=== PATIENT | female | born 1950 | race Two or more races ===

== ENCOUNTER 2024-10-27 10:16 | Inpatient (IN) | payer OTHER ==
[~2024-10-27] VITALS: Ht 147.3 cm; Wt 88.9 kg
--- NOTE | 2024-10-27 10:37 | ED.PDOC ---
History of present illness HPI Comments 74 y/o F, with PMHx of CKF, DM, and CVA presents to the ED for CC of hypoglycemia. EMS reports, patient is coming from home where family called due to patient being disoriented and confused. Upon arrival to scene, EMS relays patient's blood sugar to have read at 34 on glucometer. In route to the ED, patient was given a bag of D10; blood sugar read at 126 after administration. Patient receives dialysis 3x a week, last dialysis was said to be as of yesterday (10/26/24); patient was only able to complete half of her treatment. No other symptoms or modifying factors present at this time due to patient's condition. Chief Complaint: Hypoglycemia Time Seen by MD: 10:10 History of present illness: Nurses Notes, Press Tool Maker Notes, Medications, Allergies Allergies: Coded Allergies: NO KNOWN ALLERGIES (Unverified , 10/27/24) Information Source: Patient, Emergency Med Personnel Mode of Arrival: EMS Timing: Hours Duration: Since onset Prehospital treatment: None [place]: Confusion History of: Diabetes, Insulin use Modifying factors: Nothing Associated signs and symptoms: None Past Medical History PAST MEDICAL HISTORY: CKF, CVA, DM Surgical History: Cholecystectomy OFFICE SUPPORT SPECIALIST History: Denies all OFFICE SUPPORT SPECIALIST Hx Family History Family History: Unknown Social History Smoker: Non-Smoker Alcohol: Denies ETOH Use Drugs: Denies Drug Use Lives In: Home Constitutional: denies: chills, diaphoresis, fatigue, fever, malaise, sweats, weakness, others EENTM: denies: blurred vision, double vision, ear bleeding, ear discharge, ear drainage, ear pain, ear ringing, eye pain, eye redness, hearing loss, mouth pain, mouth swelling, nasal discharge, nose bleeding, nose congestion, nose pain, photophobia, tearing, throat pain, throat swelling, voice changes, others Respiratory: denies: cough, hemoptysis, orthopnea, SOB at rest, shortness of breath, SOB with excertion, stridor, wheezing, others Cardiovascular: denies: chest pain, dizzy spells, diaphoresis, Dyspnea on exertion, edema, irregular heart beat, left arm pain, lightheadedness, palpi tations, PND, syncope, others Gastrointestinal: denies: abdomen distended, abdominal pain, blood streaked bowels, constipated, diarrhea, dysphagia, difficulty swallowing, hematemesis, melena, nausea, poor appetite, poor fluid intake, rectal bleeding, rectal pain, vomiting, others Genitourinary: denies: abnormal vagina bleeding, burning, dyspareunia, dysuria, flank pain, frequency, hematuria, incontinence, pain, , vagina discharge, urgency, others Neurological: denies: dizziness, fainting, headache, left sided numbness, left sided weakness, numbness, paresthesia, pre-existing deficit, right sided numbness, right sided weakness, seizure, speech problems, tingling, tremors, weakness, others Musculoskeletal: denies: back pain, gout, joint pain, joint swelling, muscle pain, muscle stiffness, neck pain, others Integumetry: denies: bruises, change in color, change in hair/nails, dryness, laceration, lesions, lumps, rash, wounds, others Allergic/Immunocompromised: denies: Difficulty Healing, Frequent Infections, Hives, Itching, others Hematologic/Lymphatic: denies: anemia, blood clots, easy bleeding, easy bru ising, swollen glands, others Endocrine: denies: excessive hunger, excessive sweating, excessive thirst, e xcessive urination, flushing, intolerance to cold, intolerance to heat, unexplained weight gain, unexplained weight loss, others Psychiatric: denies: anxiety, bipolar disorder, depression, hopeless, panic disorder, schizophrenia, sleepless, suicidal, others Unable to Obtain due to: Altered Mental Status Physical Exam General Appearance: Moderate Distress, Obese HEENT: Normal ENT Inspection, Pharynx Normal, TMs Normal Neck: Full Range of Motion, Non-Tender, Normal, Normal Inspection Respiratory: Chest Non-Tender, Lungs Clear, No Accessory Muscle Use, No Respiratory Distress, Normal Breath Sounds Cardiovascular: No Edema, No JVD, No Murmur, No Gallop, Normal Peripheral Pulses, Regular Rate/Rhythm Breast Exam: Deferred Gastrointestinal: No Organomegaly, Non Tender, No Pulsatile Mass, Normal Bowel Sounds, Soft Genitalia: Deferred Pelvic: Deferred Rectal: Deferred Extremities: No calf tenderness, Normal capillary refill, Normal inspection, Normal range of motion, Non-tender, No pedal edema Musculoskeletal : Apperance: Normal Neurologic: Alert, houseman II-XII nml as Tested, No Motor Deficits, Normal Affect, Normal Mood, No Sensory Deficits Cerebellar Function: Normal Reflexes: Normal Skin: Dry, Normal Color, Warm Lymphatic: No Adenopathy Was a procedure done? Was a procedure done?: No EKG EKG : Pulse Rate (adult): 57 [place]: Normal Cardiac Rhythm: NSR, PVC's Block: None Hypertrophy: None ST: Normal Differential Diagnosis (DM) Differential Diagnosis: Dehydration, Electrolyte Abnormality, Hypoglycemia X-Ray, Labs, Meds, VS Vital Signs Date Time Temp Pulse Resp B/P (MAP) Pulse Ox O2 Delivery O2 Flow Rate FiO2 10/27/24 12:00 62 10/27/24 11:00 59 16 98 Room Air* 0 21 10/27/24 10:53 97.8 59 16 125/60 (81) 98 97.8 10/27/24 10:37 57 10/27/24 10:25 97.8 60 18 120/48 (72) 95 97.8 Lab Test 10/27/24 11:45 10/27/24 10:50 Range/Units Urine Color Colorless Yellow Urine Clarity Turbid H Clear Urine pH 8.0 5.0-9.0 Urine Specific [place] 1.006 1.001-1.035 Urine Protein 2+ H Negative Urine Ketones Negative Negative Urine Blood 1+ H Negative /uL Urine Nitrite Negative Negative Urine Bilirubin Negative Negative Urine Urobilinogen Normal Negative mg/dL Urine Leukocyte Esterase 3+ Negative /uL Urine RBC 23 0 - 4 /hpf Urine Microscopic WBC 904 H 0-5 /HPF Urine Squamous Epithelial Cells None seen <5 /hpf Urine Bacteria None seen None Seen /hpf Urine Glucose Normal Normal mg/dL White Blood Count 5.4 4.4-10.8 10^3/uL Red Blood Count 4.10 4.0-5.20 10^6/uL Hemoglobin 12.8 12.2-16.2 g/dL Hematocrit 39.3 36.0-46.0 % Mean Corpuscular Volume 95.7 80.0-100.0 fL Mean Corpuscular Hemoglobin 31.3 28.0-32.0 pg Mean Corpuscular Hemoglobin Concent 32.7 32.0-36.0 g/dL Red Cell Distribution Width 17.4 H 11.8-14.3 % Platelet Count 164 140-450 10^3/uL Mean Platelet Volume 8.6 6.9-10.8 fL Neutrophils (%) (Auto) 74.9 37.0-80.0 % Lymphocytes (%) (Auto) 19.0 10.0-50.0 % Monocytes (%) (Auto) 5.3 0.0-12.0 % Eosinophils (%) (Auto) 0.3 0.0-7.0 % Basophils (%) (Auto) 0.5 0.0-2.0 % Neutrophils # (Auto) 4.1 1.6-8.6 10 ^3/uL Lymphocytes # (Auto) 1.0 0.4-5.4 10 ^3/uL Monocytes # (Auto) 0.3 0-1.3 10 ^3/uL Eosinophils # (Auto) 0 0-0.8 10 ^3/uL Basophils # (Auto) 0 0-0.2 10 ^3/uL Nucleated Red Blood Cells 0.0 % Sodium Level 135 L 136-145 mmol/L Potassium Level 3.8 3.5-5.1 mmol/L Chloride Level 96 L 98-107 mmol/L Carbon Dioxide Level 30 20-31 mmol/L Anion Gap 9 5-15 Blood Urea Nitrogen 27 H 9-23 mg/dL Creatinine 5.85 H 0.550-1.02 mg/dL Glomerular Filtration Rate Calc 7 >90 mL/min BUN/Creatinine Ratio 4.6 L 10.0-20.0 Serum Glucose 153 H 74-106 mg/dL Lactic Acid Level 0.8 0.4-2.0 mmol/L Calcium Level 8.7 8.7-10.4 mg/dL CXR: IMPRESSION: Cardiomegaly with mild pulmonary vascular congestion. The patient's CBC is within normal limits The patient's BUN is 27 the creatinine is 5.5 consistent with the patient's Rest of the chemistry panel is within normal limits with hypochloremia at 96 The patient also has a UTI and is being started on Rocephin 1 g IV piggyback At this time, we will continue to monitor the patient's blood sugar The patient is being admitted at this time Images Reviewed?: Images reviewed and evaluated by me Time of 1ST Reevaluation: 10:40 Reevaluation 1ST: Unchanged Time of 2ND Reevaluation: 13:32 Reevaluation 2ND: Improved Patient Education/Counseling: Diagnosis, Treatment, Prognosis Family Education/Counseling: No Family Present Departure 1 Departure Time of Disposition: 13:32 Impression: Primary Impression: Metabolic encephalopathy Additional Impressions: Hypoglycemia UTI (urinary tract infection) Qualified Codes: N30.00 - Acute cystitis without hematuria Disposition: ADMITTED INPATIENT Admit to: Tele Condition: Fair Critical Care Note Critical Care Time?: Yes (45 min-critical care time only) Stability Stability form required: Yes Unstable for transfer: Telemetry monitoring (Telemetry monitoring required), ED Physician Assesment (Clinical assesment) Heart Score Heart Score: Heart Score Response (Comments) Value History N/A 0 EKG N/A 0 Age N/A 0 Risk Factors N/A 0 Troponin N/A 0 Total 0 I personally scribed for DESTINEE LAUREN MD ([email or web address]) on 10/27/24 at 10:37. Electronically submitted by Juanis Voss ([email or web address]). I personally scribed for DESTINEE LAUREN MD ([email or web address]) on 10/27/24 at 12:09. Electronically submitted by Juanis Voss ([email or web address]). DESTINEE LAUREN MD October 27, 2024 10:37
[2024-10-27 11:00] VITALS: PULSE 59; RESP 16; O2SAT 98
[2024-10-27 11:07] LABS: Basophils # (auto) 0 10 ^3/uL (0-0.2); Basophils % (auto) 0.5 % (0.0-2.0); Eosinophils # (auto) 0 10 ^3/uL (0-0.8); Eosinophils % (auto) 0.3 % (0.0-7.0); Hematocrit 39.3 % (36.0-46.0); Hemoglobin 12.8 g/dL (12.2-16.2); Mean Corpuscular Hemoglobin 31.3 pg (28.0-32.0); Mean Corpuscular Hgb Conc. 32.7 g/dL (32.0-36.0); Mean Corpuscular Volume 95.7 fL (80.0-100.0); Monocytes # (auto) 0.3 10 ^3/uL (0-1.3); Monocytes % (auto) 5.3 % (0.0-12.0); Neutrophils # (auto) 4.1 10 ^3/uL (1.6-8.6); Neutrophils % (auto) 74.9 % (37.0-80.0); Platelet Count (auto) 164 10^3/uL (140-450); Red Cell Distribution Width 17.4 % (11.8-14.3); White Blood Cell 5.4 10^3/uL (4.4-10.8)
[2024-10-27 11:16] LABS: Carbon Dioxide 30 mmol/L (20-31); Potassium 3.8 mmol/L (3.5-5.1)
[2024-10-27 11:17] LABS: Calcium 8.7 mg/dL (8.7-10.4)
[2024-10-27 11:21] LABS: Anion Gap 9 (5-15); Chloride 96 mmol/L (98-107); Sodium 135 mmol/L (136-145)
[2024-10-27 11:22] LABS: BUN/Creatinine Ratio 4.6 (10.0-20.0); Blood Urea Nitrogen 27 mg/dL (9-23); Glucose 153 mg/dL (74-106)
--- NOTE | 2024-10-27 11:42 | DVH ---
EXAM: XY CHEST PORTABLE Indication: ALOC Technique: Single frontal view of the chest was obtained Comparison: None FINDINGS: Lines and Tubes: None Lungs: No focal consolidation. Mild pulmonary vascular congestion. Pleura: No effusion. No pneumothorax. Cardiomediastinal contours: Cardiomegaly. Atherosclerotic vascular calcifications of the thoracic ao rta are noted. Bones: No acute osseous abnormality. IMPRESSION: Cardiomegaly with mild pulmonary vascular congestion.
[2024-10-27 11:50] LABS: Urine Bacteria None Seen /hpf (None Seen)
[2024-10-27 11:59] LABS: Urine Blood 1+ /uL (Negative); Urine Clarity Turbid (Clear); Urine Color Colorless (Yellow); Urine Protein, UAD 2+ (Negative); Urine Specific Gravity 1.006 (1.001-1.035); Urine Squamous Epithelial Cell None Seen /hpf (<5); Urine Urobilinogen Normal (Negative); Urine WBC 904 /HPF (0-5)
[2024-10-27] MEDS: cefTRIAXone 1GM/50ML D5W 50 ML IV ONE (13:52)
[2024-10-27] MEDS ORDERED: GABA-1250 PO (14:14)
[2024-10-27] MEDS ORDERED: AMLO1TAB21 PO (14:14)
[2024-10-27] MEDS ORDERED: MEMA1TAB5 PO (14:14)
[2024-10-27] MEDS ORDERED: FLUO-470 PO (14:14)
[2024-10-27] MEDS ORDERED: CARV12.544 PO (14:14)
[2024-10-27] MEDS ORDERED: ATOR20TA50 PO (14:14)
[2024-10-27] MEDS ORDERED: DOCUSATE SOD 100 MG CAP PO PRN (14:15)
[2024-10-27] MEDS ORDERED: DEXTROSE (50%) 50ML SYRG IV PRN (14:15)
[2024-10-27] MEDS ORDERED: ACETAMINOPHEN 325 MG TAB PO PRN (14:15)
[2024-10-27] MEDS ORDERED: ONDANSETRON HCL 4 MG/2 ML VIAL IV PRN (14:15)
[2024-10-27] MEDS ORDERED: HYDROcodone-ACET 5/325MG TAB PO PRN (14:15)
--- NOTE | 2024-10-27 14:30 | DVHHP2 ---
History of Present Illness Reason for Visit: AL History of Present Illness Sandra Booth is a 74-year-old female with past medical history of CVA, ESRD on HD, hypertension, hyperlipidemia, and diabetes, who came in due to altered level of consciousness and hypoglycemia. Patient states she does not remember what happened this morning. The last thing she can remember is going to bed last night. According to family, she was confused this morning, so they called EMS. With EMS her blood sugars were low and she was given D10 and blood sugar improved. Family states her last dialysis was yesterday, but they were only to complete partial due to her clotting. Patient states she takes insulin at home, that she did take it yesterday, but she can not remember the dose. Cardiovascular: HTN, hyperipidemia EVENING SITTER: CVA Renal/: Chronic renal failure (on HD) Endocrine: Diabetes Past Surgical History: Cholecystectomy, Tonsillectomy Smoke: No ALCOHOL: none Drugs: None Lives: with Family Domestic Violence: Neg Review of Systems Constitutional: No: Fever, Chills, Sweats, Weakness, Malaise, Other Eyes: No: Pain, Vision change, Conjunctivae inflammation, Eyelid inflammation, Other, Redness ENT: No: Ear pain, Ear discharge, Nose pain, Nose discharge, Nose congestion, Mouth pain, Mouth swelling, Throat pain, Throat swelling, Other Respiratory: No: Cough, Dry, Shortness of breath, SOB with excertion, Wheezing, Hemoptysis, Pleuritic Pain, Sputum, Wheezing, Other Cardiovascular: No: Chest Pain, Palpitations, Orthopnea, Paroxysmal Noc. Dyspnea, Edema, Lt Headedness, Other Gastrointestinal: No: Nausea, Vomiting, Abdominal Pain, Diarrhea, Constipation, Melena, Hematochezia, Other Genitourinary: No Dysuria, No Frequency, No Incontinence, No Hematuria, No Retention, No Other Musculoskeletal: No: other, neck pain, shoulder pain, arm pain, back pain, hand pain, leg pain, foot pain Skin: No: Rash, Lesions, Jaundice, Bruising, Other Neurological: Weakness, Confusion, Other (hypoglycemia); No: Numbness, Incoo rdination, Change in speech, Seizures Allergies: Coded Allergies: NO KNOWN ALLERGIES (Unverified , 10/27/24) Medications Current Medications Medications Dose Ordered Sig/Ruby Route Start Time Stop Time Status Last Admin Dose Admin Sodium Chloride 10 ml Q8HR IV 10/27/24 22:00 UNV Acetaminophen/ Hydrocodone Bitart 1 tab Q4HP PRN PO 10/27/24 14:15 UNV Ondansetron HCl 4 mg Q4HP PRN IV 10/27/24 14:15 UNV Docusate Sodium 100 mg BIDPRN PRN PO 10/27/24 14:15 UNV Acetaminophen 650 mg Q6HP PRN PO 10/27/24 14:15 UNV Diagnostic Test (Pha) 1 strip Q2H 10/27/24 14:15 UNV Dextrose 50 ml UD PRN IV 10/27/24 14:15 UNV Exam Vital Signs Vital Signs Date Time Temp Pulse Resp B/P (MAP) Pulse Ox O2 Delivery O2 Flow Rate FiO2 10/27/24 14:12 62 16 133/26 (61) 95 10/27/24 11:00 Room Air* 0 21 10/27/24 10:53 97.8 97.8 General Appearance: Alert, Oriented X3, Cooperative HEENT: Atraumatic, PERRLA Respiratory: Clear to auscultation, Normal air movement Cardiovascular: Regular rate, Normal S1, Normal S2, No murmurs Abdominal: Normal bowel sounds, Soft, No tenderness Extremities: No clubbing, No cyanosis, No edema, Normal pulses Skin: No rashes, No breakdown, No significant lesion Neuro: Normal gait, Normal speech, Strength at 5/5 X4 ext, Normal tone Psych/Mental Status: Mental status NL, Mood NL Labs/Xrays Labs Test 10/27/24 11:45 10/27/24 10:50 Range/Units Urine Color Colorless Yellow Urine Clarity Turbid H Clear Urine pH 8.0 5.0-9.0 Urine Specific [place] 1.006 1.001-1.035 Urine Protein 2+ H Negative Urine Ketones Negative Negative Urine Blood 1+ H Negative /uL Urine Nitrite Negative Negative Urine Bilirubin Negative Negative Urine Urobilinogen Normal Negative mg/dL Urine Leukocyte Esterase 3+ Negative /uL Urine RBC 23 0 - 4 /hpf Urine Microscopic WBC 904 H 0-5 /HPF Urine Squamous Epithelial Cells None seen <5 /hpf Urine Bacteria None seen None Seen /hpf Urine Glucose Normal Normal mg/dL White Blood Count 5.4 4.4-10.8 10^3/uL Red Blood Count 4.10 4.0-5.20 10^6/uL Hemoglobin 12.8 12.2-16.2 g/dL Hematocrit 39.3 36.0-46.0 % Mean Corpuscular Volume 95.7 80.0-100.0 fL Mean Corpuscular Hemoglobin 31.3 28.0-32.0 pg Mean Corpuscular Hemoglobin Concent 32.7 32.0-36.0 g/dL Red Cell Distribution Width 17.4 H 11.8-14.3 % Platelet Count 164 140-450 10^3/uL Mean Platelet Volume 8.6 6.9-10.8 fL Neutrophils (%) (Auto) 74.9 37.0-80.0 % Lymphocytes (%) (Auto) 19.0 10.0-50.0 % Monocytes (%) (Auto) 5.3 0.0-12.0 % Eosinophils (%) (Auto) 0.3 0.0-7.0 % Basophils (%) (Auto) 0.5 0.0-2.0 % Neutrophils # (Auto) 4.1 1.6-8.6 10 ^3/uL Lymphocytes # (Auto) 1.0 0.4-5.4 10 ^3/uL Monocytes # (Auto) 0.3 0-1.3 10 ^3/uL Eosinophils # (Auto) 0 0-0.8 10 ^3/uL Basophils # (Auto) 0 0-0.2 10 ^3/uL Nucleated Red Blood Cells 0.0 % Sodium Level 135 L 136-145 mmol/L Potassium Level 3.8 3.5-5.1 mmol/L Chloride Level 96 L 98-107 mmol/L Carbon Dioxide Level 30 20-31 mmol/L Anion Gap 9 5-15 Blood Urea Nitrogen 27 H 9-23 mg/dL Creatinine 5.85 H 0.550-1.02 mg/dL Glomerular Filtration Rate Calc 7 >90 mL/min BUN/Creatinine Ratio 4.6 L 10.0-20.0 Serum Glucose 153 H 74-106 mg/dL Lactic Acid Level 0.8 0.4-2.0 mmol/L Calcium Level 8.7 8.7-10.4 mg/dL EXAM: XY CHEST PORTABLE FINDINGS: Lines and Tubes: None Lungs: No focal consolidation. Mild pulmonary vascular congestion. Pleura: No effusion. No pneumothorax. Cardiomediastinal contours: Cardiomegaly. Atherosclerotic vascular calcifications of the thoracic aorta are noted. Bones: No acute osseous abnormality. IMPRESSION: Cardiomegaly with mild pulmonary vascular congestion. Assessment/Plan Assessment/Plan Assessment: Hypoglycemia, ESRD on HD, Hypertension, Diabetes, Plan: Admit to Med-Surg, Nephrology consult, Accu checks Q 2 hour with PRN dextrose, Home insulin held due to hypoglycemia and patient is unclear of her dose, Home medications reconciled, Plan discussed with: Patient My Orders Orders - REGINO HEARD Procedure Category Date Status Time *Dr. Lissa Cline -Da CONS 10/27/24 Transmitted Sonia 14:09 Admit ADMIT 10/27/24 Transmitted 14:09 Code Status CODE 10/27/24 Transmitted 14:09 Renal DIET 10/27/24 Transmitted Standard(2gna,3gk,Lopho) Dinner Sodium Chloride Lock PHA 10/27/24 Logged (Saline Lock Ns) 22:00 Hydrocodone-Acet PHA 10/27/24 Transmitted 5/325mg Tab (Alexander 14:15 Ondansetron Hcl PHA 10/27/24 Transmitted (Zofran) 14:15 Docusate Sodium PHA 10/27/24 Transmitted Capsule (Colace 14:15 Complete Blood Count LAB 10/28/24 Verified 04:00 Comprehensive LAB 10/28/24 Verified Metabolic Panel 04:00 Condition: Serious GONZÁLEZ 10/27/24 In Process 14:09 Acetaminophen Tablet PHA 10/27/24 Transmitted (Tylenol Tablet) 14:15 Glucose Blood PHA 10/27/24 Transmitted (Accu-Chek Comfort 14:15 Dextrose 50% Syringe PHA 10/27/24 Logged 14:15 Atorvastatin (Lipitor) PHA 10/28/24 Verified 10:00 Carvedilol Tablet PHA 10/27/24 Verified (Coreg Tablet) 22:00 Fluoxetine Capsule PHA 10/28/24 Verified (Prozac Capsule) 10:00 (Nf) Amlodipine PHA 10/28/24 Verified Besylate 10:00 (Nf) Memantine PHA 10/28/24 Verified Hydrochloride 10:00 Gabapentin Capsule PHA 10/27/24 Verified (Neurontin Capsule) 22:00 Date of Service: October 27, 2024 Billing Provider: REGINO HEARD Common Visit Codes: [id number] INP/OBS CARE (MOD) REGINO HEARD October 27, 2024 14:30
[2024-10-27] MEDS: ACCU-CHEK COMFORT CURVE STRIP VI SCH (14:58)
[2024-10-27 20:00] VITALS: PULSE 69; RESP 16
[2024-10-27 21:00] VITALS: BP 134/95; PULSE 69; RESP 18; TEMP 98.3; O2SAT 92
[2024-10-27] MEDS: SODIUM CHLOR 0.9% PF (SALINE LOCK) 10ML VIAL/SYR IV SCH (22:36)
[2024-10-27] MEDS: ATORVASTATIN 20 MG TAB PO SCH (22:36)
[2024-10-27] MEDS: CARVEDILOL 12.5 MG TAB PO SCH (22:36)
[2024-10-27] MEDS: GABAPENTIN 300 MG CAP PO SCH (22:37)
[2024-10-28] MEDS: ACCU-CHEK COMFORT CURVE STRIP VI SCH (00:14)
[2024-10-28] MEDS: InsuLIN REG 1unit/0.01ml Soln (100units/ml) SC SCH (00:17)
[2024-10-28 01:00] VITALS: BP 115/40; PULSE 64; RESP 18; TEMP 98.9; O2SAT 99
[2024-10-28 05:00] VITALS: BP 103/41; PULSE 58; RESP 18; TEMP 98.2; O2SAT 94
[2024-10-28] MEDS: DEXTROSE (50%) 50ML SYRG IV PRN (06:09)
[2024-10-28 06:33] LABS: Basophils # (auto) 0 10 ^3/uL (0-0.2); Basophils % (auto) 0.7 % (0.0-2.0); Eosinophils # (auto) 0.2 10 ^3/uL (0-0.8); Hematocrit 34.5 % (36.0-46.0); Hemoglobin 11.3 g/dL (12.2-16.2); Lymphocytes # (auto) 1.2 10 ^3/uL (0.4-5.4); Lymphocytes % (auto) 22.2 % (10.0-50.0); Mean Corpuscular Hemoglobin 31.4 pg (28.0-32.0); Mean Corpuscular Hgb Conc. 32.8 g/dL (32.0-36.0); Mean Corpuscular Volume 95.8 fL (80.0-100.0); Monocytes # (auto) 0.5 10 ^3/uL (0-1.3); Monocytes % (auto) 9.7 % (0.0-12.0); Neutrophils # (auto) 3.6 10 ^3/uL (1.6-8.6); Neutrophils % (auto) 63.4 % (37.0-80.0); Nucleated Red Blood Cells % 0.1 %; Platelet Count (auto) 176 10^3/uL (140-450); Red Cell Distribution Width 17.8 % (11.8-14.3); White Blood Cell 5.6 10^3/uL (4.4-10.8)
[2024-10-28 06:59] LABS: Alanine Aminotransferase 13 U/L (7-40); Albumin 3.3 g/dL (3.2-4.8); Alkaline Phosphatase 56 U/L (46-116); Anion Gap 12 (5-15); Aspartate Aminotransferase 15 U/L (13-40); BUN/Creatinine Ratio 4.9 (10.0-20.0); Carbon Dioxide 29 mmol/L (20-31); Potassium 3.8 mmol/L (3.5-5.1); Sodium 138 mmol/L (136-145)
[2024-10-28 07:26] LABS: Chloride 97 mmol/L (98-107)
[2024-10-28 07:29] LABS: Bilirubin, Total 0.2 mg/dL (0.2-1.0); Blood Urea Nitrogen 34 mg/dL (9-23); Calcium 8.2 mg/dL (8.7-10.4); Glucose 28 mg/dL (74-106)
[2024-10-28 09:00] VITALS: BP 111/38; PULSE 63; RESP 18; TEMP 98.7; O2SAT 99
[2024-10-28] MEDS: MEMANTINE HCL 5 MG TAB PO SCH (09:41)
[2024-10-28] MEDS: FLUoxetine HCL 20 MG CAP PO SCH (09:41)
[2024-10-28] MEDS: amLODIPine BESYLATE 5 MG TAB PO SCH (09:45)
[2024-10-28 13:00] VITALS: BP 120/48; PULSE 64; RESP 17; TEMP 98; O2SAT 100
[2024-10-28 17:00] VITALS: BP 144/60; PULSE 63; RESP 16; TEMP 98; O2SAT 94
--- NOTE | 2024-10-28 17:46 | DVHPN2 ---
Subjective had episode of hypoglycemia to 30s this morning Changes from previous H/P or p: No Changes Eyes: No Pain, No Vision change, No Conjunctivae inflammation, No Eyelid inflammation, No Other, No Redness ENT: No Ear pain, No Ear discharge, No Nose pain, No Nose discharge, No Nose congestion, No Mouth pain, No Mouth swelling, No Throat pain, No Throat swelling, No Other Cardiovascular: No Chest Pain, No Palpitations, No Orthopnea, No Paroxysmal Noc. Dyspnea, No Edema, No Lt Headedness, No Other Respiratory: No Cough, No Dry, No Shortness of breath, No SOB with excertion, No Wheezing, No Hemoptysis, No Pleuritic Pain, No Sputum, No Other Gastrointestinal: No Nausea, No Vomiting, No Abdominal Pain, No Diarrhea, No Constipation, No Melena, No Hematochezia, No Other Genitourinary: No Dysuria, No Frequency, No Incontinence, No Hematuria, No Retention, No Other Musculoskeletal: No other, No neck pain, No shoulder pain, No arm pain, No back pain, No hand pain, No leg pain, No foot pain Skin: No Rash, No Lesions, No Jaundice, No Bruising, No Other Objective Vitals Vital Signs Date Time Temp Pulse Resp B/P (MAP) Pulse Ox O2 Delivery O2 Flow Rate FiO2 10/28/24 13:00 98.0 64 17 120/48 (72) 100 98.0 10/28/24 08:00 Room Air* 0 21 Intake/Output Intake and Output 10/28/24 07:00 Intake Total 518 ml Output Total 700 ml Balance -182 ml Intake Oral 468 ml IV Total 50 ml Output Urine Total 700 ml General Appearance: Alert, Oriented X3 HEENT: Atraumatic, PERRLA Cardiovascular: Regular rate, Normal S1, Normal S2 Medications Current Medications Medications Dose Ordered Sig/Ruby Route Start Time Stop Time Status Last Admin Dose Admin Sodium Chloride 10 ml Q8HR IV 10/27/24 22:00 10/28/24 14:52 10 ML Acetaminophen/ Hydrocodone Bitart 1 tab Q4HP PRN PO 10/27/24 14:15 Ondansetron HCl 4 mg Q4HP PRN IV 10/27/24 14:15 Docusate Sodium 100 mg BIDPRN PRN PO 10/27/24 14:15 Acetaminophen 650 mg Q6HP PRN PO 10/27/24 14:15 Dextrose 50 ml UD PRN IV 10/27/24 14:15 Cancel Atorvastatin Calcium 20 mg HS PO 10/27/24 22:00 10/27/24 22:36 20 MG Carvedilol 12.5 mg BID PO 10/27/24 22:00 10/28/24 09:45 12.5 MG Fluoxetine HCl 20 mg DAILY PO 10/28/24 10:00 10/28/24 09:41 20 MG Amlodipine Besylate 2.5 mg DAILY PO 10/28/24 10:00 10/28/24 09:45 2.5 MG Memantine 10 mg DAILY PO 10/28/24 10:00 10/28/24 09:41 10 MG Gabapentin 300 mg TID PO 10/27/24 22:00 10/28/24 14:51 300 MG Diagnostic Test (Pha) 1 strip Q6HR 10/28/24 00:00 10/28/24 12:00 1 STRIP Insulin Human Regular Q6HR SC 10/28/24 00:00 10/28/24 12:59 4 UNITS Dextrose 50 ml UD PRN IV 10/27/24 23:30 10/28/24 06:09 50 ML Laboratory Results Laboratory Tests 10/28/24 05:37 Chemistry Test 10/28/24 05:37 Albumin 3.3 g/dL (3.2-4.8) Calcium Level 8.2 mg/dL (8.7-10.4) L Total Protein 6.0 g/dL (5.7-8.2) LFT Test 10/28/24 05:37 Alanine Aminotransferase (ALT) 13 U/L (7-40) Alkaline Phosphatase 56 U/L (46-116) Aspartate Amino Transferase (AST) 15 U/L (13-40) Total Bilirubin 0.2 mg/dL (0.2-1.0) Urinalysis Test 10/27/24 11:45 Urine Color Colorless (Yellow) Urine Clarity Turbid (Clear) H Urine pH 8.0 (5.0-9.0) Urine Specific [place] 1.006 (1.001-1.035) Urine Protein 2+ (Negative) H Urine Ketones Negative (Negative) Urine Blood 1+ /uL (Negative) H Urine Nitrite Negative (Negative) Urine Bilirubin Negative (Negative) Urine Urobilinogen Normal mg/dL (Negative) Urine Leukocyte Esterase 3+ /uL (Negative) Urine RBC 23 /hpf (0 - 4) Urine Microscopic WBC 904 /HPF (0-5) H Urine Squamous Epithelial Cells None seen /hpf (<5) Urine Bacteria None seen /hpf (None Seen) Urine Glucose Normal mg/dL (Normal) Microbiology Microbiology Date/Time Source Procedure Growth Status 10/27/24 10:50 Blood Blood Culture - Preliminary NO GROWTH AFTER 24 HOURS OF INCUBATION. Resulted Assessment/Plan Assessment/Plan Hypoglycemia, ESRD on HD, Hypertension, Diabetes, Monitor Glucose litigation services manager to help establish care here since she moved from [place] per nephrology If glc better will plan to dc tomorrow Plan discussed with: Patient My Orders Orders - ARNOLD GALLO MD Procedure Category Date Status Time * Director Client Services CONS 10/28/24 Transmitted Consult Date of Service: October 28, 2024 Billing Provider: ARNOLD GALLO MD Common Visit Codes: [id number] INP/OBS CARE(HIGH) ARNOLD GALLO MD October 28, 2024 17:46
[2024-10-28 21:00] VITALS: BP 148/47; PULSE 65; RESP 16; TEMP 98.2; O2SAT 100
--- NOTE | 2024-10-28 21:33 | DVHINCON2 ---
DATE OF CONSULTATION: 10/28/2024 CONSULTING PHYSICIAN: Dr. Rowan. REASON FOR CONSULTATION: Management of dialysis. HISTORY OF PRESENT ILLNESS: The patient is a 74-year-old female who was brought to the hospital yesterday by ambulance. Apparently, she was very confused in the morning hours. It was noted that she was hypoglycemic. She received intravenous dextrose in the ambulance and also in the Emergency Room. She is being admitted for observation and further management. I am being consulted to handle her dialysis treatments while she is in the hospital. REVIEW OF SYSTEMS: Otherwise unremarkable. At this point, she is feeling better. Denies having any other symptoms or complaints. PAST MEDICAL HISTORY: Significant for longstanding hypertension, diabetes, end-stage renal disease, hyperlipidemia, and anemia. SOCIAL HISTORY: She denies smoking cigarettes, drinking alcohol, or using illicit drugs. FAMILY HISTORY: Significant for diabetes and hypertension. MEDICATIONS: Medications in the hospital include Namenda, amlodipine, fluoxetine, insulin, dextrose, gabapentin, carvedilol, atorvastatin, acetaminophen, and docusate. PHYSICAL EXAMINATION: VITAL SIGNS: Blood pressure is 120/39, heart rate 64, respirations 16, temperature 98.2. GENERAL: The patient is an elderly female who appears to be chronically ill. At this point, she is in no acute distress, alert and oriented x2. HEENT: Unremarkable. Oral mucosa is mildly pale and dry. LUNGS: Clear to auscultation. CARDIOVASCULAR: Regular rate with an S4 gallop. ABDOMEN: Soft. Bowel sounds are normal in intensity and frequency. NEUROLOGIC: Extremities show no clubbing or cyanosis. There is no edema. LABORATORY FINDINGS: Sodium is 138, potassium 3.8, bicarbonate 6.9, creatinine 6.9. Hemoglobin 11.3. ASSESSMENT AND PLAN: * End-stage renal disease. From the renal standpoint, she is stable. There are no major electrolyte imbalances. * Hypoglycemia has resolved. * Anemia of renal disease. Hemoglobin is at target range. * History of hypertension. Currently, blood pressure is well controlled. There is no need for dialysis today. The patient could be discharged home. If she remains in the hospital by tomorrow, we can arrange for her to have dialysis in the morning. Thank you for the consultation. MD YOSELIN Ball/NATA TID: [id number] RECEIPT: [id number]
[2024-10-29 01:00] VITALS: BP 125/48; PULSE 62; RESP 17; TEMP 98.7; O2SAT 100
[2024-10-29 05:00] VITALS: BP 126/51; PULSE 61; RESP 17; TEMP 98.5; O2SAT 100
[2024-10-29] MEDS ORDERED: SODIUM CHL 0.9% 1000 ML BAG XX ONE (07:00)
[2024-10-29 08:10] VITALS: PULSE 62; RESP 19; O2SAT 99
[2024-10-29 08:34] VITALS: BP 123/52; PULSE 62; RESP 19; TEMP 98.9; O2SAT 99
--- NOTE | 2024-10-29 10:27 | DVHPN2 ---
Progress Note - Dictate Date Seen: October 29, 2024 Has the PT tested + for MRSA If YES, has PT been informed?: No Medical Necessity Reason Pt with a Central, PICC or Fol: No Subjective More alert No new complaints vital signs Vital Sign Date Time Temp Pulse Resp B/P (MAP) Pulse Ox O2 Delivery O2 Flow Rate FiO2 10/29/24 08:34 98.9 62 19 123/52 (75) 99 98.9 10/28/24 20:00 Room Air* 0 21 Total Intake and Output 10/28/24 10/28/24 10/29/24 15:00 23:00 07:00 Intake Total 250 ml 420 ml Output Total 200 ml 400 ml Balance 50 ml 20 ml medications Current Medications Medications Dose Ordered Sig/Ruby Route Start Time Stop Time Status Last Admin Dose Admin Sodium Chloride 10 ml Q8HR IV 10/27/24 22:00 10/29/24 06:19 10 ML Acetaminophen/ Hydrocodone Bitart 1 tab Q4HP PRN PO 10/27/24 14:15 Ondansetron HCl 4 mg Q4HP PRN IV 10/27/24 14:15 Docusate Sodium 100 mg BIDPRN PRN PO 10/27/24 14:15 Acetaminophen 650 mg Q6HP PRN PO 10/27/24 14:15 Dextrose 50 ml UD PRN IV 10/27/24 14:15 Cancel Atorvastatin Calcium 20 mg HS PO 10/27/24 22:00 10/28/24 22:33 20 MG Carvedilol 12.5 mg BID PO 10/27/24 22:00 10/28/24 22:33 12.5 MG Fluoxetine HCl 20 mg DAILY PO 10/28/24 10:00 10/28/24 09:41 20 MG Amlodipine Besylate 2.5 mg DAILY PO 10/28/24 10:00 10/28/24 09:45 2.5 MG Memantine 10 mg DAILY PO 10/28/24 10:00 10/28/24 09:41 10 MG Gabapentin 300 mg TID PO 10/27/24 22:00 10/29/24 06:18 300 MG Diagnostic Test (Pha) 1 strip Q6HR 10/28/24 00:00 10/29/24 06:19 1 STRIP Insulin Human Regular Q6HR SC 10/28/24 00:00 10/29/24 00:36 8 UNITS Dextrose 50 ml UD PRN IV 10/27/24 23:30 10/28/24 06:09 50 ML objective NAD Lungs CTA CV: RR, no pericardial rub Abdomen: sift, NT, normal bowel sounds No leg edema laboratory and microbiology Laboratory Tests 10/28/24 05:37 Test 10/28/24 05:37 Range/Units Serum Glucose 28 *L 74-106 mg/dL Problem List 1. ESRD, stable 2. Hypoglycemia, resolved 3. DM2 4. HTN 5. Anenmia of CKD Patient will have HD today DC home after HD Plan discussed with: Patient ROLAND HOWARD MD October 29, 2024 10:27
[2024-10-29 13:25] VITALS: BP 114/59; PULSE 61; RESP 19; TEMP 98.8; O2SAT 98
--- NOTE | 2024-10-29 14:39 | ECG ---
[facility] Test Date: 2024-10-27 Test Time: 10:29:09 Pat Name: MARITO BAILON Department: ED Room: 0280 B Gender: F Pin Maker: SIVAKUMAR : 1950 Requested By: DESTINEE LAUREN Order Number: [id number] Reading MD: Nick Yeboah Measurements Intervals Gap Rate: 57 P: 19 SD: 48 QRS: 5 QRSD: 141 T: 80 QT: 531 QTc: 517 Interpretive Statements Sinus rhythm Ventricular trigeminy Short SD interval Nonspecific intraventricular conduction delay Repol abnrm suggests ischemia, anterolateral Artifact in lead(s) I,II,III,aVR,aVL,aVF,V1 Electronically Signed On 10-30-2024 20:57:42 PDT by Nick Yeboah Please click the below link to view image of tracing.
--- NOTE | 2024-10-29 17:32 | DVHDS2 ---
Discharge Summary Date of Admission October 27, 2024 at 14:09 Date of Discharge: October 29, 2024 Labs/Diagnostic Data: Laboratory Results Test 10/29/24 13:01 10/29/24 10:02 10/28/24 05:37 10/27/24 11:45 POC Glucose 203 mg/dl (70-106) Hepatitis B Surface Antigen Negative (Negative) White Blood Count 5.6 10^3/uL (4.4-10.8) Red Blood Count 3.60 10^6/uL (4.0-5.20) Hemoglobin 11.3 g/dL (12.2-16.2) Hematocrit 34.5 % (36.0-46.0) Mean Corpuscular Volume 95.8 fL (80.0-100.0) Mean Corpuscular Hemoglobin 31.4 pg (28.0-32.0) Mean Corpuscular Hemoglobin Concent 32.8 g/dL (32.0-36.0) Red Cell Distribution Width 17.8 % (11.8-14.3) Platelet Count 176 10^3/uL (140-450) Mean Platelet Volume 9.0 fL (6.9-10.8) Neutrophils (%) (Auto) 63.4 % (37.0-80.0) Lymphocytes (%) (Auto) 22.2 % (10.0-50.0) Monocytes (%) (Auto) 9.7 % (0.0-12.0) Eosinophils (%) (Auto) 4.0 % (0.0-7.0) Basophils (%) (Auto) 0.7 % (0.0-2.0) Neutrophils # (Auto) 3.6 10 ^3/uL (1.6-8.6) Lymphocytes # (Auto) 1.2 10 ^3/uL (0.4-5.4) Monocytes # (Auto) 0.5 10 ^3/uL (0-1.3) Eosinophils # (Auto) 0.2 10 ^3/uL (0-0.8) Basophils # (Auto) 0 10 ^3/uL (0-0.2) Nucleated Red Blood Cells 0.1 % Sodium Level 138 mmol/L (136-145) Potassium Level 3.8 mmol/L (3.5-5.1) Chloride Level 97 mmol/L (98-107) Carbon Dioxide Level 29 mmol/L (20-31) Anion Gap 12 (5-15) Blood Urea Nitrogen 34 mg/dL (9-23) Creatinine 6.89 mg/dL (0.550-1.02) Glomerular Filtration Rate Calc 6 mL/min (>90) BUN/Creatinine Ratio 4.9 (10.0-20.0) Serum Glucose 28 mg/dL (74-106) Calcium Level 8.2 mg/dL (8.7-10.4) Total Bilirubin 0.2 mg/dL (0.2-1.0) Aspartate Amino Transferase (AST) 15 U/L (13-40) Alanine Aminotransferase (ALT) 13 U/L (7-40) Alkaline Phosphatase 56 U/L (46-116) Total Protein 6.0 g/dL (5.7-8.2) Albumin 3.3 g/dL (3.2-4.8) Urine Color Colorless (Yellow) Urine Clarity Turbid (Clear) Urine pH 8.0 (5.0-9.0) Urine Specific [place] 1.006 (1.001-1.035) Urine Protein 2+ (Negative) Urine Ketones Negative (Negative) Urine Blood 1+ /uL (Negative) Urine Nitrite Negative (Negative) Urine Bilirubin Negative (Negative) Urine Urobilinogen Normal mg/dL (Negative) Urine Leukocyte Esterase 3+ /uL (Negative) Urine RBC 23 /hpf (0 - 4) Urine Microscopic WBC 904 /HPF (0-5) Urine Squamous Epithelial Cells None seen /hpf (<5) Urine Bacteria None seen /hpf (None Seen) Urine Glucose Normal mg/dL (Normal) Test 10/27/24 10:50 Lactic Acid Level 0.8 mmol/L (0.4-2.0) Other Laboratory Tests 10/28/24 05:37 Brief Hx & Hospital Course: Sandra Booth is a 74-year-old female with past medical history of CVA, ESRD on HD, hypertension, hyperlipidemia, and diabetes, who came in due to altered level of consciousness and hypoglycemia. Patient states she does not remember what happened this morning. The last thing she can remember is going to bed last night. According to family, she was confused this morning, so they called EMS. With EMS her blood sugars were low and she was given D10 and blood sugar improved. Family states her last dialysis was yesterday, but they were only to complete partial due to her clotting. Patient states she takes insulin at home, that she did take it yesterday, but she can not remember the dose. Hypoglycemia resolved most likely over insulin use I advised to half her lantus at home Condition at Discharge: Good Final Diagnosis/Problems List hypoglycemia Discharge Disposition: Home Discharge Instruct/Medications Diet: Cardiac 2g Na,low cholest Activity: No Restrictions, As Tolerated Follow Up/Referral: PCP in 7 days Medications: same home medications Discharge Statement: "Patient was advised to return to the ER or call 911 if any headaches, dizziness, shortness of breath, chest pain, abdominal pain, bleeding, fevers, or worsening of medical condition. Patient was counseled about treatment plan, medications, possible side effects, patientverbalized understanding. All questions were answered to the best of my ability. This discharge took greater then 30 minutes in planning, reviewing documentation, counseling the patient, and discussing with other team members." ASSESSMENT ASSESSMENT Assessment hypoglycemia Date of Service: October 29, 2024 Billing Provider: ARNOLD GALLO MD Common Visit Codes: 29560-ZFS/OBS DISCH DAY >30min ARNOLD GALLO MD October 29, 2024 17:32
== END 2024-10-29 18:45 | disposition home or self-care (01) | DRG 637 ==
LOC: ER 10:16 → EDBD 10:16 → OVERFLOW 14:09 → WEST WING 16:43
PROVIDERS: ADMIT Hospitalist; ATTEND Hospitalist
DX: E11.649 Type 2 diabetes mellitus with hypoglycemia without coma (principal); G93.41 Metabolic encephalopathy; I12.0 Hypertensive chronic kidney disease with stage 5 chronic kidney disease or end stage renal disease; N39.0 Urinary tract infection, site not specified; N18.6 End stage renal disease; Z99.2 Dependence on renal dialysis; E78.5 Hyperlipidemia, unspecified; E11.22 Type 2 diabetes mellitus with diabetic chronic kidney disease; Z86.73 Personal history of transient ischemic attack (TIA), and cerebral infarction without residual deficits; Z83.3 Family history of diabetes mellitus; Z82.49 Family history of ischemic heart disease and other diseases of the circulatory system; Z79.4 Long term (current) use of insulin
CPT/HCPCS: 36415; 71045; 80048; 80053; 81001; 82962; 83605; 85025; 87040; 87081; 87340; 90935; 93005; 96365; 99291; G0378; J1815

== ENCOUNTER 2024-12-13 16:35 | Inpatient (IN) | payer OTHER ==
[~2024-12-13] VITALS: Ht 144.8 cm; Wt 71.7 kg
[~2024-12-13 16:35] MED LIST: AMLO1TAB21 PO; ATOR20TA50 PO; CARV12.544 PO; FLUO-470 PO; GABA-1250 PO; MEMA1TAB5 PO
--- NOTE | 2024-12-13 17:02 | ED.PDOC ---
SOB-HPI HPI Comments 74-year-old female presents with a chief complaint of URI symptoms x 1 week. Patient states that she was seen at urgent care and treated for an URI and given antibiotics x 1 week ago. Patient cannot recall which antibiotics were prescribed to her, but states that she has been compliant with them, but denies any relief. Patient relays that urgent care informed her that if she felt no relief after the antibiotics to go into the ER. Patient is actively coughing during assessment. Denies any chest pain, abdomen pain, nausea, vomiting, or diarrhea. 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 Hx Family History Family History: Unknown Social History Smoker: Non-Smoker Alcohol: Denies ETOH Use Drugs: Denies Drug Use Lives In: Home Constitutional: denies: chills, diaphoresis, fatigue, fever, malaise, sweats, weakness, others EENTM: denies: blurred vision, double vision, ear bleeding, ear discharge, ear drainage, ear pain, ear ringing, eye pain, eye redness, hearing loss, mouth pain, mouth swelling, nasal discharge, nose bleeding, nose congestion, nose pain, photophobia, tearing, throat pain, throat swelling, voice changes, others Respiratory: reports: cough; denies: hemoptysis, orthopnea, SOB at rest, shortness of breath, SOB with excertion, stridor, wheezing, others Cardiovascular: denies: chest pain, dizzy spells, diaphoresis, Dyspnea on exertion, edema, irregular heart beat, left arm pain, lightheadedness, palpitations, PND, syncope, others Gastrointestinal: denies: abdomen distended, abdominal pain, blood streaked bowels, constipated, diarrhea, dysphagia, difficulty swallowing, hematemesis, melena, nausea, poor appetite, poor fluid intake, rectal bleeding, rectal pain, vomiting, others Genitourinary: denies: abnormal vagina bleeding, burning, dyspareunia, dysuria, flank pain, frequency, hematuria, incontinence, pain, , vagina discharge, urgency, others Neurological: denies: dizziness, fainting, headache, left sided numbness, left sided weakness, numbness, paresthesia, pre-existing deficit, right sided numbness, right sided weakness, seizure, speech problems, tingling, tremors, weakness, others Musculoskeletal: denies: back pain, gout, joint pain, joint swelling, muscle pain, muscle stiffness, neck pain, others Integumetry: denies: bruises, change in color, change in hair/nails, dryness, laceration, lesions, lumps, rash, wounds, others Allergic/Immunocompromised: denies: Difficulty Healing, Frequent Infections, Hives, Itching, others Hematologic/Lymphatic: denies: anemia, blood clots, easy bleeding, easy bruising, swollen glands, others Endocrine: denies: excessive hunger, excessive sweating, excessive thirst, excessive urination, flushing, intolerance to cold, intolerance to heat, unexplained weight gain, unexplained weight loss, others Psychiatric: denies: anxiety, bipolar disorder, depression, hopeless, panic disorder, schizophrenia, sleepless, suicidal, others All Other Systems: Reviewed and Negative ( PER HPI) Physical Exam General Appearance: No Apparent Distress, Normal HEENT: Normal ENT Inspection, Pharynx Normal, TMs Normal Neck: Full Range of Motion, Non-Tender, Normal, Normal Inspection Respiratory: Chest Non-Tender, Lungs Clear, No Accessory Muscle Use, Normal Breath Sounds, Other (MMM, LUNGS CLEAR, AIRWAY PATENT) Cardiovascular: No Murmur, No Gallop, Regular Rate/Rhythm Breast Exam: Deferred Gastrointestinal: No Organomegaly, Non Tender, No Pulsatile Mass, Normal Bowel Sounds, Soft Genitalia: Deferred Pelvic: Deferred Rectal: Deferred Extremities: No calf tenderness, Normal capillary refill, Normal inspection, Normal range of motion, Non-tender, No pedal edema Musculoskeletal : Apperance: Normal Neurologic: Alert, hydro technician II-XII nml as Tested, No Motor Deficits, Normal Affect, Normal Mood, No Sensory Deficits Cerebellar Function: Normal Reflexes: Normal Skin: Dry, Normal Color, Warm Lymphatic: No Adenopathy Was a procedure done? Was a procedure done?: No Differential Dx Differential Diagnosis: Bronchitis, Pneumonia, Sinusitis, URI X-Ray, Labs, Meds, VS Vital Signs Date Time Temp Pulse Resp B/P (MAP) Pulse Ox O2 Delivery O2 Flow Rate FiO2 12/13/24 18:00 97.2 60 20 118/80 (93) 99 97.2 12/13/24 17:02 98.7 55 20 114/90 (98) 97 98.7 Lab Test 12/13/24 17:42 12/13/24 17:41 12/13/24 17:18 Range/Units Influenza Type A Antigen Negative Negative Influenza Type B Antigen Negative Negative SARS-CoV-2 Antigen (Rapid) Negative NEGATIVE White Blood Count 6.6 4.4-10.8 10^3/uL Red Blood Count 3.58 L 4.0-5.20 10^6/uL Hemoglobin 11.7 L 12.2-16.2 g/dL Hematocrit 34.0 L 36.0-46.0 % Mean Corpuscular Volume 95.0 80.0-100.0 fL Mean Corpuscular Hemoglobin 32.6 H 28.0-32.0 pg Mean Corpuscular Hemoglobin Concent 34.3 32.0-36.0 g/dL Red Cell Distribution Width 16.8 H 11.8-14.3 % Platelet Count 136 L 140-450 10^3/uL Mean Platelet Volume 8.9 6.9-10.8 fL Neutrophils (%) (Auto) 69.3 37.0-80.0 % Lymphocytes (%) (Auto) 24.3 10.0-50.0 % Monocytes (%) (Auto) 6.0 0.0-12.0 % Eosinophils (%) (Auto) 0.2 0.0-7.0 % Basophils (%) (Auto) 0.2 0.0-2.0 % Neutrophils # (Auto) 4.5 1.6-8.6 10 ^3/uL Lymphocytes # (Auto) 1.6 0.4-5.4 10 ^3/uL Monocytes # (Auto) 0.4 0-1.3 10 ^3/uL Eosinophils # (Auto) 0 0-0.8 10 ^3/uL Basophils # (Auto) 0 0-0.2 10 ^3/uL Nucleated Red Blood Cells 0.0 % Sodium Level 133 L 136-145 mmol/L Potassium Level 3.4 L 3.5-5.1 mmol/L Chloride Level 93 L 98-107 mmol/L Carbon Dioxide Level 27 20-31 mmol/L Anion Gap 13 5-15 Blood Urea Nitrogen 37 H 9-23 mg/dL Creatinine 6.50 H 0.550-1.02 mg/dL Glomerular Filtration Rate Calc 6 >90 mL/min BUN/Creatinine Ratio 5.7 L 10.0-20.0 Serum Glucose 141 H 74-106 mg/dL Lactic Acid Level 1.2 0.4-2.0 mmol/L Calcium Level 9.0 8.7-10.4 mg/dL Total Bilirubin 0.2 0.2-1.0 mg/dL Aspartate Amino Transferase (AST) 32 13-40 U/L Alanine Aminotransferase (ALT) 17 7-40 U/L Alkaline Phosphatase 73 46-116 U/L B-Type Natriuretic Peptide 631.49 0-100 pg/mL Total Protein 6.7 5.7-8.2 g/dL Albumin 3.7 3.2-4.8 g/dL PATIENT: MARITO BAILON LACCT: [id number]: [id number] : 1950 LOC: ER ROOM / BED: / AGE / SEX: 74 / F ADM STATUS: REG ER SERVICE [id number] ORDERING PHYSICIAN: RACHELLE VALLES KIER DRIER PROCEDURE(s): CXR2 - CHEST TWO VIEWS ROUTINE REASON: R/o PNA ORDER NUMBER(s): [id number], ACCESSION NUMBER(s): [id number] CHEST RADIOGRAPH Indication: R/o PNA Technique: 2 views chest COMPARISON: 10/27/2024 FINDINGS: The cardiac silhouette is enlarged. The lungs demonstrate bilateral patchy airspace opacities. Bilateral interstitial airspace opacities. The pulmonary vasculature is prominent. There is no pleural effusion. There is no pneumothorax. Aortic atherosclerotic disease. 1.6 cm lytic lesion of the right humeral head. IMPRESSION: Cardiomegaly with pulmonary vascular congestion and bilateral patchy airspace opacities. Interstitial airspace opacities which could represent sequela of pulmonary edema, atypical infection, chronic lung changes/disease. 1.6 cm right humeral head lytic lesion with considerations including cysts, metastases, myeloma. Recommend MRI right shoulder with and without contrast to evaluate. ATED BY: MORALES SO MD DICTATED DATE/TIME: 12/13/241812 SIGNED BY: MORALES SO MD SIGNED DATE/TIME: 12/13/241812 CC: X-Ray, Labs, Meds, VS Comment 74-year-old female presents with a chief complaint of URI symptoms x 1 week. Patient arrives alert and oriented, ABC's intact, afebrile, vital signs stable, saturating well in room air labs were ordered. CBC was ordered to exclude anemia, blood loss, or infection. CMP was ordered to exclude electrolyte abnormalities, renal failure, dehydration, hyperglycemia and/or liver enzyme abnormalities. BNP ordered to rule out congestive heart failure. Urinalysis was ordered to rule out UTI or hematuria. Viral swabs ordered Diagnostic imaging ordered: CXR 18:00. Viral swabs were negative. Currently pending chest x-ray and labs at this time. Patient will be endorsed to [facility] provider at this time. CBC reviewed BMP reviewed BNP reviewed Chest x-ray reviewed Hep-Lock IV ordered Rocephin 1 g IV ordered Doxycycline 100 mg IV ordered Patient finished p.o. antibiotics without any relief of symptoms Patient admitted to hospitalist for pneumonia and need for IV antibiotics Images Reviewed?: Images reviewed and evaluated by me Time of 1ST Reevaluation: 17:25 Reevaluation 1ST: Unchanged Patient Education/Counseling: Diagnosis, Treatment, Prognosis Family Education/Counseling: Diagnosis, Treatment, Prognosis Change of Shift?: Yes (Patient endorsed from KIER DRIER Mary at shift change) SEPSIS Sepsis Screen Physician Orders Chest Two Views Routine (12/13/24 16:49) Urinalysis (12/13/24 16:49) Heplock Iv (12/13/24 ) Admit (12/13/24 19:46) Vital Signs Date Time Temp Pulse Resp B/P (MAP) Pulse Ox O2 Delivery O2 Flow Rate FiO2 12/13/24 18:00 97.2 60 20 118/80 (93) 99 97.2 12/13/24 17:02 98.7 55 20 114/90 (98) 97 98.7 Laboratory Tests Test 12/13/24 17:18 Lactic Acid Level 1.2 mmol/L (0.4-2.0) White Blood Count 6.6 10^3/uL (4.4-10.8) Departure 1 Departure Time of Disposition: 19:02 Impression: Primary Impression: Pneumonia Qualified Codes: J18.9 - Pneumonia, unspecified organism Additional Impression: Dialysis patient Disposition: ADMITTED INPATIENT Condition: Fair Critical Care Note Critical Care Time?: No Stability Stability form required: No Heart Score Heart Score: Heart Score Response (Comments) Value History N/A 0 EKG N/A 0 Age N/A 0 Risk Factors N/A 0 Troponin N/A 0 Total 0 I personally scribed for RACHELLE VALLES NP ([email or web address]) on 12/13/24 at 17:02. Electronically submitted by Nicolas Stewart [email or web address]). RACHELLE VALLES NP Dec 13, 2024 17:02 PAM ANN Dec 13, 2024 19:07
[2024-12-13 17:44] LABS: COVID19 ANTIGEN SOFIA FIA NEGATIVE (NEGATIVE)
[2024-12-13 17:50] LABS: Hematocrit 34.0 % (36.0-46.0); Hemoglobin 11.7 g/dL (12.2-16.2); Mean Corpuscular Hemoglobin 32.6 pg (28.0-32.0); Mean Corpuscular Volume 95.0 fL (80.0-100.0); Nucleated Red Blood Cells % 0.0 %
[2024-12-13 17:58] LABS: Alanine Aminotransferase 17 U/L (7-40); Albumin 3.7 g/dL (3.2-4.8); Alkaline Phosphatase 73 U/L (46-116); Anion Gap 13 (5-15); BUN/Creatinine Ratio 5.7 (10.0-20.0); Calcium 9.0 mg/dL (8.7-10.4); Carbon Dioxide 27 mmol/L (20-31); Total Protein 6.7 g/dL (5.7-8.2)
[2024-12-13 18:11] LABS: Bilirubin, Total 0.2 mg/dL (0.2-1.0); Blood Urea Nitrogen 37 mg/dL (9-23); Chloride 93 mmol/L (98-107); Glucose 141 mg/dL (74-106); Potassium 3.4 mmol/L (3.5-5.1); Sodium 133 mmol/L (136-145)
--- NOTE | 2024-12-13 18:15 | DVH ---
CHEST RADIOGRAPH Indication: R/o PNA Technique: 2 views chest COMPARISON: 10/27/2024 FINDINGS: The cardiac silhouette is enlarged. The lungs demonstrate bilateral patchy airspace opacities. Bilate ral interstitial airspace opacities. The pulmonary vasculature is prominent. There is no pleural effu alissa. There is no pneumothorax. Aortic atherosclerotic disease. 1.6 cm lytic lesion of the right julieth ral head. IMPRESSION: Cardiomegaly with pulmonary vascular congestion and bilateral patchy airspace opacities. Interstitial airspace opacities which could represent sequela of pulmonary edema, atypical infection, chronic lung changes/disease. 1.6 cm right humeral head lytic lesion with considerations including cysts, metastases, myeloma. Rec ommend MRI right shoulder with and without contrast to evaluate.
[2024-12-13] MEDS ORDERED: ONDANSETRON HCL 4 MG/2 ML VIAL IV PRN (20:00)
--- NOTE | 2024-12-13 21:14 | DVHHP2 ---
History of Present Illness Reason for Visit: Shortness for breath History of Present Illness 74-year-old female presents for evaluation of shortness for breath. Patient endorses a one-week history of having a productive cough with yellow phlegm with associated shortness for breath and intermittent fever. Denies chest pain or palpitations. No other acute complaints reported. Past Medical History Diabetes mellitus, end-stage renal disease, CVA, CHF Past Surgical History Dialysis access, cholecystectomy Family History Noncontributory Smoke: No ALCOHOL: none Drugs: None Lives: with Family Review of Systems Review of Systems Review of systems are currently negative otherwise addressed in HPI. Allergies: Coded Allergies: NO KNOWN ALLERGIES (Unverified , 10/27/24) Medications Current Medications Medications Dose Ordered Sig/Ruby Route Start Time Stop Time Status Last Admin Dose Admin Azithromycin 250 ml @ 125 mls/hr DAILY IV 12/14/24 10:00 Ceftriaxone Sodium 50 ml @ 100 mls/hr DAILY@09 IV 12/14/24 09:00 Atorvastatin Calcium 20 mg HS PO 12/13/24 22:00 Memantine 10 mg DAILY PO 12/14/24 10:00 Levothyroxine Sodium 112 mcg QAM@0600 PO 12/14/24 06:00 Carvedilol 12.5 mg Q12HR PO 12/13/24 22:00 Amlodipine Besylate 2.5 mg DAILY PO 12/14/24 10:00 Gabapentin 300 mg HS PO 12/13/24 22:00 Ondansetron HCl 4 mg Q4HP PRN IV 12/13/24 20:00 Acetaminophen 650 mg Q6HP PRN PO 12/13/24 20:00 Exam Vital Signs Vital Signs Date Time Temp Pulse Resp B/P (MAP) Pulse Ox O2 Delivery O2 Flow Rate FiO2 12/13/24 17:02 98.7 55 20 114/90 (98) 97 98.7 Exam Gen: 74-year-old female in mild distress Skin: Warm, dry, normal color and texture, no rash. HEENT: Normocephalic atraumatic, mucous membranes moist and pink. Neck: Cervical and supraclavicular nodes normal without enlargement, trachea is midline, thyroid gland is normal without masses. Pulmonary: Bilateral rhonchi Cardiac: Regular rate and rhythm. No murmur Abdomen: Soft, nontender, nondistended, bowel sounds present all 4 quadrants, no guarding, no rigidity, no organomegaly. Extremities: No cyanosis, clubbing, no edema Neuro: Cranial nerves II through XII grossly intact, normal affect and speech, no focal motor deficits. Labs/Xrays ORDERING PHYSICIAN: RACHELLE VALLES NP PROCEDURE(s): CXR2 - CHEST TWO VIEWS ROUTINE REASON: R/o PNA ORDER NUMBER(s): [id number], ACCESSION NUMBER(s): [id number] CHEST RADIOGRAPH Indication: R/o PNA Technique: 2 views chest COMPARISON: 10/27/2024 FINDINGS: The cardiac silhouette is enlarged. The lungs demonstrate bilateral patchy airspace opacities. Bilateral interstitial airspace opacities. The pulmonary vasculature is prominent. There is no pleural effusion. There is no pneumothorax. Aortic atherosclerotic disease. 1.6 cm lytic lesion of the right humeral head. IMPRESSION: Cardiomegaly with pulmonary vascular congestion and bilateral patchy airspace opacities. Interstitial airspace opacities which could represent sequela of pulmonary edema, atypical infection, chronic lung changes/disease. 1.6 cm right humeral head lytic lesion with considerations including cysts, metastases, myeloma. Recommend MRI right shoulder with and without contrast to evaluate. Labs Test 12/13/24 17:42 12/13/24 17:41 12/13/24 17:18 Range/Units Influenza Type A Antigen Negative Negative Influenza Type B Antigen Negative Negative SARS-CoV-2 Antigen (Rapid) Negative NEGATIVE White Blood Count 6.6 4.4-10.8 10^3/uL Red Blood Count 3.58 L 4.0-5.20 10^6/uL Hemoglobin 11.7 L 12.2-16.2 g/dL Hematocrit 34.0 L 36.0-46.0 % Mean Corpuscular Volume 95.0 80.0-100.0 fL Mean Corpuscular Hemoglobin 32.6 H 28.0-32.0 pg Mean Corpuscular Hemoglobin Concent 34.3 32.0-36.0 g/dL Red Cell Distribution Width 16.8 H 11.8-14.3 % Platelet Count 136 L 140-450 10^3/uL Mean Platelet Volume 8.9 6.9-10.8 fL Neutrophils (%) (Auto) 69.3 37.0-80.0 % Lymphocytes (%) (Auto) 24.3 10.0-50.0 % Monocytes (%) (Auto) 6.0 0.0-12.0 % Eosinophils (%) (Auto) 0.2 0.0-7.0 % Basophils (%) (Auto) 0.2 0.0-2.0 % Neutrophils # (Auto) 4.5 1.6-8.6 10 ^3/uL Lymphocytes # (Auto) 1.6 0.4-5.4 10 ^3/uL Monocytes # (Auto) 0.4 0-1.3 10 ^3/uL Eosinophils # (Auto) 0 0-0.8 10 ^3/uL Basophils # (Auto) 0 0-0.2 10 ^3/uL Nucleated Red Blood Cells 0.0 % Sodium Level 133 L 136-145 mmol/L Potassium Level 3.4 L 3.5-5.1 mmol/L Chloride Level 93 L 98-107 mmol/L Carbon Dioxide Level 27 20-31 mmol/L Anion Gap 13 5-15 Blood Urea Nitrogen 37 H 9-23 mg/dL Creatinine 6.50 H 0.550-1.02 mg/dL Glomerular Filtration Rate Calc 6 >90 mL/min BUN/Creatinine Ratio 5.7 L 10.0-20.0 Serum Glucose 141 H 74-106 mg/dL Lactic Acid Level 1.2 0.4-2.0 mmol/L Calcium Level 9.0 8.7-10.4 mg/dL Total Bilirubin 0.2 0.2-1.0 mg/dL Aspartate Amino Transferase (AST) 32 13-40 U/L Alanine Aminotransferase (ALT) 17 7-40 U/L Alkaline Phosphatase 73 46-116 U/L B-Type Natriuretic Peptide 631.49 0-100 pg/mL Total Protein 6.7 5.7-8.2 g/dL Albumin 3.7 3.2-4.8 g/dL Assessment/Plan Assessment/Plan Assessment Community-acquired pneumonia End-stage renal disease, diabetes mellitus Hypokalemia Plan Admit the patient to Med surge to the hospitalist Rocephin/azithromycin Med nebs Resume home medications Nephrology consult Continue treatment per orders. Plan discussed with: Patient My Orders Orders - TUAN OZUNA AGACNP Procedure Category Date Status Time Admit ADMIT 12/13/24 Transmitted 19:46 Azithromycin 500mg/ PHA 12/14/24 In Process 250ml (Zithromax 50 10:00 Ceftriaxone 1gm/50ml PHA 12/14/24 In Process D5w (Rocephin) 09:00 Atorvastatin (Lipitor) PHA 12/13/24 In Process 22:00 Memantine Tablet PHA 12/14/24 In Process (Namenda Tablet) 10:00 Levothyroxine Tablet PHA 12/14/24 In Process (Synthroid Tablet) 06:00 Carvedilol Tablet PHA 12/13/24 In Process (Coreg Tablet) 22:00 Amlodipine Tablet PHA 12/14/24 In Process (Norvasc Tablet) 10:00 Gabapentin Capsule PHA 12/13/24 In Process (Neurontin Capsule) 22:00 Basic Metabolic Panel LAB 12/14/24 Verified 04:00 Renal DIET 12/14/24 Transmitted Standard(2gna,3gk,Lopho) Breakfast Ondansetron Hcl PHA 12/13/24 In Process (Zofran) 20:00 Complete Blood Count LAB 12/14/24 Verified 04:00 Condition: Stable GONZÁLEZ 12/13/24 In Process 19:49 Acetaminophen Tablet PHA 12/13/24 In Process (Tylenol Tablet) 20:00 Bedrest With Bathroom GONZÁLEZ 12/13/24 In Process Privileg 19:49 *Dr. Lissa Cline -Da CONS 12/13/24 Transmitted Sonia 21:07 Date of Service: Dec 13, 2024 Billing Provider: TUAN OZUNA Common Visit Codes: [id number] INP/OBS CARE (HIGH) TUAN OZUNA Dec 13, 2024 21:13
[2024-12-13 21:18] VITALS: BP 114/90; PULSE 55; RESP 20; TEMP 98.7; O2SAT 97
[2024-12-13] MEDS: CARVEDILOL 12.5 MG TAB PO SCH (22:00)
[2024-12-13] MEDS: GABAPENTIN 300 MG CAP PO SCH (22:02)
[2024-12-13] MEDS: cefTRIAXone 1GM/50ML D5W 50 ML IV ONE (22:02)
[2024-12-13] MEDS: ATORVASTATIN 20 MG TAB PO SCH (22:02)
[2024-12-13] MEDS: POTASSIUM CHL 20 Meq TABLET PO ONE (22:02)
[2024-12-13] MEDS: DOXYCYCLINE 100MG/100ML 100 ML IV ONE (22:03)
[2024-12-14] VITALS (12 sets, daily range): BP systolic 115–140; BP diastolic 58–86; PULSE 65–76; RESP 18–22; TEMP 97–101.9; O2SAT 91–100
[2024-12-14] MEDS: guaiFENesin-DM 100/10mg/5ml SYR PO PRN (00:48)
[2024-12-14] MEDS: ALBUTEROL SULF 2.5 MG/0.5ML(0.5%) NEB SOLN NEB PRN (01:34)
[2024-12-14] MEDS: LEVOTHYROXINE SODIUM 112 MCG TAB PO SCH (06:37)
[2024-12-14 07:17] LABS: Potassium 4.1 mmol/L (3.5-5.1)
[2024-12-14 07:18] LABS: Anion Gap 14 (5-15); Calcium 9.1 mg/dL (8.7-10.4); Carbon Dioxide 26 mmol/L (20-31); Chloride 95 mmol/L (98-107); Sodium 135 mmol/L (136-145)
[2024-12-14 07:22] LABS: Hematocrit 34.8 % (36.0-46.0); Hemoglobin 11.8 g/dL (12.2-16.2); Mean Corpuscular Hemoglobin 32.3 pg (28.0-32.0); Mean Corpuscular Volume 95.6 fL (80.0-100.0); Nucleated Red Blood Cells % 0.0 %
[2024-12-14 07:23] LABS: BUN/Creatinine Ratio 5.7 (10.0-20.0)
[2024-12-14 07:25] LABS: Blood Urea Nitrogen 40 mg/dL (9-23); Glucose 57 mg/dL (74-106)
[2024-12-14] MEDS: MEMANTINE HCL 5 MG TAB PO SCH (09:39)
[2024-12-14] MEDS: cefTRIAXone 1GM/50ML D5W 50 ML IV SCH (09:41)
[2024-12-14] MEDS: AZITHROMYCIN 500MG/ 250ML 250 ML IV SCH (10:53)
--- NOTE | 2024-12-14 18:58 | DVHINCON2 ---
Date of service: Dec 14, 2024 Referring Physician Alfred Hendricks NP Reason for Consultation END-STAGE KIDNEY DISEASE History of Present Illness This is a 74-year-old female with history of end-stage kidney disease on hemodialysis, type 2 diabetes, congestive heart failure presenting to the emergency room complaining of shortness of breaths associated with productive cough. Chest x-ray was done which was concerning for pneumonia. Patient admitted and started on IV antibiotics. Nephrology consulted for dialysis. Patient's last dialysis was on Friday. Patient is seen and examined at bedside. Undergoing dialysis. Goal for ultrafiltration is 3 L. Past Medical History As stated above Past Surgical History As stated above Family History: Hypertension G8 MOTHER, Social History No active history of smoking, alcohol or drug abuse Allergies: Coded Allergies: NO KNOWN ALLERGIES (Unverified , 10/27/24) Home Meds Reported Medications Gabapentin (Gabapentin) 300 Mg Cap, 1 CAP PO TID 10/27/24 Amlodipine Besylate (Amlodipine Besylate) 2.5 Mg Tab, 1 TAB PO DAILY 10/27/24 Carvedilol (Carvedilol) 12.5 Mg Tab, 1 TAB PO BID 10/27/24 Atorvastatin Calcium (ATORVASTATIN CALCIUM) 20 Mg Tab, 1 TAB PO DAILY 10/27/24 Memantine Hydrochloride (Memantine HCl) 10 Mg Tab, 1 TAB PO DAILY 10/27/24 Fluoxetine HCl (Fluoxetine HCl) 20 Mg Cap, 1 CAP PO DAILY 10/27/24 Current Medications Current Medications Medications (Trade) Dose Ordered Sig/Ruby Route PRN Reason Start Time Stop Time Status Last Admin Azithromycin 250 ml @ 125 mls/hr DAILY IV 12/14/24 10:00 12/14/24 10:53 Ceftriaxone Sodium 50 ml @ 100 mls/hr DAILY@09 IV 12/14/24 09:00 12/14/24 09:41 Atorvastatin Calcium (Lipitor) 20 mg HS PO 12/13/24 22:00 12/13/24 22:02 Memantine (Namenda Tablet) 10 mg DAILY PO 12/14/24 10:00 12/14/24 09:39 Levothyroxine Sodium (Synthroid Tablet) 112 mcg QAM@0600 PO 12/14/24 06:00 12/14/24 06:37 Carvedilol (Coreg Tablet) 12.5 mg Q12HR PO 12/13/24 22:00 12/14/24 09:40 Amlodipine Besylate (Norvasc Tablet) 2.5 mg DAILY PO 12/14/24 10:00 12/14/24 09:40 Gabapentin (Neurontin Capsule) 300 mg HS PO 12/13/24 22:00 12/13/24 22:02 Ondansetron HCl (Zofran) 4 mg Q4HP PRN IV NAUSEA / VOMITING 12/13/24 20:00 Acetaminophen (Tylenol Tablet) 650 mg Q6HP PRN PO PAIN SCALE 1-3 OR TEMP>100.4 12/13/24 20:00 Guaifenesin/ Dextromethorphan (Robitussin-Dm Liquid) 10 ml Q4HP PRN PO FOR COUGH 12/13/24 21:15 12/14/24 12:58 Albuterol (Ventolin Medneb) 2.5 mg Q6HPRN PRN NEB SHORTNESS OF BREATH 12/13/24 21:15 12/14/24 01:34 Review of Systems 12 point review of systems negative except as stated in the HPI Vital Signs Vital Signs Date Time Temp Pulse Resp B/P (MAP) Pulse Ox O2 Delivery O2 Flow Rate FiO2 12/14/24 17:20 99.2 67 21 140/70 (93) 95 99.2 12/14/24 08:00 Nasal Cannula* 2 28 Physical Exam Patient resting HEENT: Normocephalic Lungs: Bilateral rhonchi CVS: S1, S2 regular rate rhythm Abdomen: Soft, bowel sounds present 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: No focal 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 Extremities: No edema Labs/Diagnostic Data Labs Test 12/14/24 06:56 12/13/24 22:21 12/13/24 17:42 12/13/24 17:41 Range/Units White Blood Count 8.6 # 4.4-10.8 10^3/uL Red Blood Count 3.64 L 4.0-5.20 10^6/uL Hemoglobin 11.8 L 12.2-16.2 g/dL Hematocrit 34.8 L 36.0-46.0 % Mean Corpuscular Volume 95.6 80.0-100.0 fL Mean Corpuscular Hemoglobin 32.3 H 28.0-32.0 pg Mean Corpuscular Hemoglobin Concent 33.8 32.0-36.0 g/dL Red Cell Distribution Width 17.1 H 11.8-14.3 % Platelet Count 146 140-450 10^3/uL Mean Platelet Volume 8.8 6.9-10.8 fL Neutrophils (%) (Auto) 72.9 37.0-80.0 % Lymphocytes (%) (Auto) 19.7 10.0-50.0 % Monocytes (%) (Auto) 6.2 0.0-12.0 % Eosinophils (%) (Auto) 0.6 0.0-7.0 % Basophils (%) (Auto) 0.6 0.0-2.0 % Neutrophils # (Auto) 6.3 1.6-8.6 10 ^3/uL Lymphocytes # (Auto) 1.7 0.4-5.4 10 ^3/uL Monocytes # (Auto) 0.5 0-1.3 10 ^3/uL Eosinophils # (Auto) 0.1 0-0.8 10 ^3/uL Basophils # (Auto) 0.1 0-0.2 10 ^3/uL Nucleated Red Blood Cells 0.0 % Sodium Level 135 L 136-145 mmol/L Potassium Level 4.1 3.5-5.1 mmol/L Chloride Level 95 L 98-107 mmol/L Carbon Dioxide Level 26 20-31 mmol/L Anion Gap 14 5-15 Blood Urea Nitrogen 40 H 9-23 mg/dL Creatinine 6.99 H 0.550-1.02 mg/dL Glomerular Filtration Rate Calc 6 >90 mL/min BUN/Creatinine Ratio 5.7 L 10.0-20.0 Serum Glucose 57 L 74-106 mg/dL Calcium Level 9.1 8.7-10.4 mg/dL POC Glucose 97 70-106 mg/dl Influenza Type A Antigen Negative Negative Influenza Type B Antigen Negative Negative SARS-CoV-2 Antigen (Rapid) Negative NEGATIVE Test 12/13/24 17:18 Range/Units Lactic Acid Level 1.2 0.4-2.0 mmol/L Total Bilirubin 0.2 0.2-1.0 mg/dL Aspartate Amino Transferase (AST) 32 13-40 U/L Alanine Aminotransferase (ALT) 17 7-40 U/L Alkaline Phosphatase 73 46-116 U/L B-Type Natriuretic Peptide 631.49 0-100 pg/mL Total Protein 6.7 5.7-8.2 g/dL Albumin 3.7 3.2-4.8 g/dL Assessment End-stage kidney disease on hemodialysis Community-acquired Pneumonia Type 2 diabetes Hypertension Plan/Recommendation Continue with IV antibiotics. Patient being dialyzed today with a goal of ultrafiltration of 3 L We will follow up on labs in a.m.. Plan discussed with: KRISTIE Caraballo MD Dec 14, 2024 18:58
[2024-12-15] VITALS (9 sets, daily range): BP systolic 118–135; BP diastolic 44–61; PULSE 66–80; RESP 17–22; TEMP 97.3–99.1; O2SAT 91–99
[2024-12-15] MEDS ORDERED: LEVO750T40 PO (11:35)
[2024-12-15] MEDS ORDERED: METH4PAK PO (11:36)
[2024-12-15] MEDS ORDERED: BENZ100C97 PO (11:38)
--- NOTE | 2024-12-15 13:48 | DVHDS2 ---
Discharge Summary Date of Admission Dec 13, 2024 at 19:46 Date of Discharge: Dec 17, 2024 Labs/Diagnostic Data: Laboratory Results Test 12/14/24 06:56 12/13/24 22:21 12/13/24 17:42 12/13/24 17:41 White Blood Count 8.6 10^3/uL (4.4-10.8) Red Blood Count 3.64 10^6/uL (4.0-5.20) Hemoglobin 11.8 g/dL (12.2-16.2) Hematocrit 34.8 % (36.0-46.0) Mean Corpuscular Volume 95.6 fL (80.0-100.0) Mean Corpuscular Hemoglobin 32.3 pg (28.0-32.0) Mean Corpuscular Hemoglobin Concent 33.8 g/dL (32.0-36.0) Red Cell Distribution Width 17.1 % (11.8-14.3) Platelet Count 146 10^3/uL (140-450) Mean Platelet Volume 8.8 fL (6.9-10.8) Neutrophils (%) (Auto) 72.9 % (37.0-80.0) Lymphocytes (%) (Auto) 19.7 % (10.0-50.0) Monocytes (%) (Auto) 6.2 % (0.0-12.0) Eosinophils (%) (Auto) 0.6 % (0.0-7.0) Basophils (%) (Auto) 0.6 % (0.0-2.0) Neutrophils # (Auto) 6.3 10 ^3/uL (1.6-8.6) Lymphocytes # (Auto) 1.7 10 ^3/uL (0.4-5.4) Monocytes # (Auto) 0.5 10 ^3/uL (0-1.3) Eosinophils # (Auto) 0.1 10 ^3/uL (0-0.8) Basophils # (Auto) 0.1 10 ^3/uL (0-0.2) Nucleated Red Blood Cells 0.0 % Sodium Level 135 mmol/L (136-145) Potassium Level 4.1 mmol/L (3.5-5.1) Chloride Level 95 mmol/L (98-107) Carbon Dioxide Level 26 mmol/L (20-31) Anion Gap 14 (5-15) Blood Urea Nitrogen 40 mg/dL (9-23) Creatinine 6.99 mg/dL (0.550-1.02) Glomerular Filtration Rate Calc 6 mL/min (>90) BUN/Creatinine Ratio 5.7 (10.0-20.0) Serum Glucose 57 mg/dL (74-106) Calcium Level 9.1 mg/dL (8.7-10.4) POC Glucose 97 mg/dl (70-106) Influenza Type A Antigen Negative (Negative) Influenza Type B Antigen Negative (Negative) SARS-CoV-2 Antigen (Rapid) Negative (NEGATIVE) Test 12/13/24 17:18 Lactic Acid Level 1.2 mmol/L (0.4-2.0) Total Bilirubin 0.2 mg/dL (0.2-1.0) Aspartate Amino Transferase (AST) 32 U/L (13-40) Alanine Aminotransferase (ALT) 17 U/L (7-40) Alkaline Phosphatase 73 U/L (46-116) B-Type Natriuretic Peptide 631.49 pg/mL (0-100) Total Protein 6.7 g/dL (5.7-8.2) Albumin 3.7 g/dL (3.2-4.8) Other Laboratory Tests 12/14/24 06:56 Brief Hx & Hospital Course: Patient is a 74-year-old female with past medical history of type 2 diabetes ESRD on HD, CHF who presented with complaints of worsening shortness of breath. Patient noted that she had a 1 week history of a productive cough with yellow phlegm associated shortness of breath with intermittent fever. Imaging was notable for a chest x-ray which was showed cardiomegaly with pulmonary vascular congestion and bilateral patchy airspace opacities. Patient was treated with ceftriaxone and azithromycin. She was discharged on levofloxacin for additional 7 days. Medrol Dosepak was prescribed with Salma Rodriguez. Patient was noted to be on 2 L oxygen and stable Home oxygen was ordered. There was also 1.6 cm lytic lesion with consideration including cyst, malignancy. MRI of the right shoulder with and without contrast was ordered. Patient to follow-up outpatient with pulmonary. ADDENDUM: patient was discharged 12/17/2024 , she was awaiting home oxygen delivery and hemodialysis. Actual date of discharge 12/17/2024 to home. Condition at Discharge: Good Final Diagnosis/Problems List Pneumonia due to unspecified organism, likely mixed gram negative vs gram positive macario Secondary Diagnosis: ESRD on HD Acute Hypoxic Respiratory Failure due to PNA Morbid Obesity Type 2 Diabetes Discharge Disposition: Home Discharge Instruct/Medications Diet: Consistent carbohydrate Activity: No Restrictions, As Tolerated Follow Up/Referral: Follow up with pulmonary. Medications: Levofloxacin, Medrol Dose TeresoSalma Scheduled Amlodipine Besylate (Amlodipine Besylate), 1 TAB PO DAILY, (Reported) Atorvastatin Calcium (Atorvastatin Calcium), 1 TAB PO DAILY, (Reported) Benzonatate (Benzonatate), 1 CAP PO TID Carvedilol (Carvedilol), 1 TAB PO BID, (Reported) Fluoxetine HCl (Fluoxetine HCl), 1 CAP PO DAILY, (Reported) Gabapentin (Gabapentin), 1 CAP PO TID, (Reported) Levofloxacin Hemihydrate (Levofloxacin), 1 TAB PO DAILY Memantine Hydrochloride (Memantine HCl), 1 TAB PO DAILY, (Reported) Methylprednisolone (Medrol Dosepak), 4 MG PO UD Discharge Statement: "Patient was advised to return to the ER or call 911 if any headaches, dizziness, shortness of breath, chest pain, abdominal pain, bleeding, fevers, or worsening of medical condition. Patient was counseled about treatment plan, medications, possible side effects, patientverbalized understanding. All questions were answered to the best of my ability. This discharge took greater then 30 minutes in planning, reviewing documentation, counseling the patient, and discussing with other team members." ASSESSMENT ASSESSMENT Hospital Course ACTUAL DATE OF DISCHARGE 12/17/2024 Assessment DC once home O2 at bedside MICHAEL BURGESS DO Dec 15, 2024 13:48 KATHERINE HENLEY MD Dec 17, 2024 18:15
[2024-12-15] MEDS ORDERED: IODIXANOL 320MG/ML 100ML BTL IV ONE (14:40)
--- NOTE | 2024-12-15 15:44 | DVH ---
EXAM: CT CT RIGHT HUMERUS W CONTRAST INDICATION: Right humerus lesion EXAM DATE: 12/15/2024 02:36 PM COMPARISON: None TECHNIQUE: Multiple axial CT images of the right humerus were obtained using bone algorithm. Axial an d coronal reformatting was done. Bone and soft tissue windows were reviewed. Radiation Dose Information: CT Dose: CTDI volume is 26.61 mGy. Dose-length product is 1166.37 mGy*cm Findings/Impression: There is no evidence of an acute fracture, dislocation, blastic, or lytic lesions. Degenerative ribeiro es of the right humeral head. No radiopaque foreign bodies. No joint effusion or superficial soft tissue abnormalities. No abnormal enhancement. Partially visualized multifocal pneumonia.
[2024-12-15 16:56] LABS: Base Excess 1.8 mmol/L (-2.0-3.0)
[2024-12-16] VITALS (14 sets, daily range): BP systolic 103–131; BP diastolic 50–58; PULSE 60–77; RESP 16–20; TEMP 97.8–102; O2SAT 91–100
[2024-12-16] MEDS ORDERED: ALBUTEROL SULF 2.5 MG/0.5ML(0.5%) NEB SOLN NEB PRN (12:45)
[2024-12-16] MEDS ORDERED: IPRATROPIUM BROM 0.5 MG/2.5ML INH SOL NEB PRN (12:45)
[2024-12-16] MEDS: IPRATROPIUM BROM 0.5 MG/2.5ML INH SOL HHN STA (12:54)
[2024-12-16] MEDS: ALBUTEROL SULF 2.5 MG/0.5ML(0.5%) NEB SOLN HHN STA (12:54)
[2024-12-16] MEDS: ALBUTEROL SULF 2.5 MG/0.5ML(0.5%) NEB SOLN ONE (12:55)
[2024-12-16] MEDS: IPRATROPIUM BROM 0.5 MG/2.5ML INH SOL ONE (12:55)
--- NOTE | 2024-12-16 13:24 | DVH ---
CHEST RADIOGRAPH Indication: pna Technique: 2 views chest COMPARISON: 10/27/2024 Comparison: XY CHEST PORTABLE on DOS: 10/27/24, XY CHEST TWO VIEWS ROUTINE on DOS: 12/13/24 FINDINGS: The cardiac silhouette is enlarged. The lungs demonstrate bilateral patchy airspace opacities. Bilate ral interstitial airspace opacities. The pulmonary vasculature is prominent. There is no pleural effu alissa. There is no pneumothorax. Aortic atherosclerotic disease. 1.6 cm lytic lesion of the right julieth ral head. IMPRESSION: Worsening pulmonary edema. Multiple possible right-sided pulmonary masses are identified. CT recommended.
[2024-12-16] MEDS: ACETAMINOPHEN 325 MG TAB PO PRN (16:07)
--- NOTE | 2024-12-16 17:31 | DVHPN2 ---
Progress Note - Dictate Date Seen: Dec 16, 2024 Medical Necessity Reason Pt with a Central, PICC or Fol: No Subjective Patient with a temperature spike of 102 F Chest x-ray with a worsening bilateral infiltrates CT chest recommended vital signs Vital Sign Date Time Temp Pulse Resp B/P (MAP) Pulse Ox O2 Delivery O2 Flow Rate FiO2 12/16/24 16:07 102.0 12/16/24 13:06 77 16 100 12/16/24 13:00 120/50 (73) 12/16/24 12:58 Nasal Cannula 4.0 12/16/24 12:57 36 Total Intake and Output 12/15/24 12/15/24 12/16/24 15:00 23:00 07:00 Intake Total 300 ml 937 ml 1010 ml Balance 300 ml 937 ml 1010 ml medications Current Medications Medications Dose Ordered Sig/Ruby Route Start Time Stop Time Status Last Admin Dose Admin Azithromycin 250 ml @ 125 mls/hr DAILY IV 12/14/24 10:00 12/16/24 12:08 125 MLS/HR Ceftriaxone Sodium 50 ml @ 100 mls/hr DAILY@09 IV 12/14/24 09:00 12/16/24 08:48 100 MLS/HR Atorvastatin Calcium 20 mg HS PO 12/13/24 22:00 12/15/24 21:32 20 MG Memantine 10 mg DAILY PO 12/14/24 10:00 12/16/24 09:01 10 MG Levothyroxine Sodium 112 mcg QAM@0600 PO 12/14/24 06:00 12/16/24 05:45 112 MCG Carvedilol 12.5 mg Q12HR PO 12/13/24 22:00 12/15/24 21:32 12.5 MG Amlodipine Besylate 2.5 mg DAILY PO 12/14/24 10:00 12/16/24 09:02 2.5 MG Gabapentin 300 mg HS PO 12/13/24 22:00 12/15/24 21:32 300 MG Ondansetron HCl 4 mg Q4HP PRN IV 12/13/24 20:00 Acetaminophen 650 mg Q6HP PRN PO 12/13/24 20:00 12/16/24 16:07 650 MG Guaifenesin/ Dextromethorphan 10 ml Q4HP PRN PO 12/13/24 21:15 12/16/24 13:07 10 ML Albuterol 2.5 mg Q4HPRN PRN NEB 12/16/24 12:45 Ipratropium [place] 0.5 mg Q4HPRN PRN NEB 12/16/24 12:45 objective Awake alert oriented x3 HEENT: Normocephalic Lungs: Bilateral rhonchi CVS: S1, S2 regular rate rhythm Abdomen: Soft, bowel sounds present 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
[2024-12-16 18:25] LABS: Hematocrit 32.1 % (36.0-46.0); Hemoglobin 10.7 g/dL (12.2-16.2); Mean Corpuscular Hemoglobin 31.9 pg (28.0-32.0); Mean Corpuscular Volume 95.6 fL (80.0-100.0); Nucleated Red Blood Cells % 0.0 %
[2024-12-16 22:49] LABS: Chloride 99 mmol/L (98-107); Potassium 4.0 mmol/L (3.5-5.1); Sodium 137 mmol/L (136-145)
[2024-12-16 22:50] LABS: Anion Gap 10 (5-15); Calcium 8.8 mg/dL (8.7-10.4); Carbon Dioxide 28 mmol/L (20-31)
[2024-12-16 22:55] LABS: BUN/Creatinine Ratio 4.6 (10.0-20.0); Blood Urea Nitrogen 16 mg/dL (9-23)
[2024-12-16 23:03] LABS: Glucose 119 mg/dL (74-106)
[2024-12-17] VITALS (7 sets, daily range): BP systolic 102–114; BP diastolic 41–58; PULSE 54–65; RESP 16–19; TEMP 36.3; O2SAT 92–98
[2024-12-17 10:33] LABS: Hepatitis B Surface Antigen Negative (Negative)
--- NOTE | 2024-12-17 14:56 | DVHPN2 ---
Progress Note - Dictate Date Seen: Dec 17, 2024 Medical Necessity Reason Pt with a Central, PICC or Fol: No Subjective Underwent dialysis yesterday. Respiratory status is improved. vital signs Vital Sign Date Time Temp Pulse Resp B/P (MAP) Pulse Ox O2 Delivery O2 Flow Rate FiO2 12/17/24 13:00 97.3 54 16 112/52 (72) 98 97.3 12/17/24 08:00 Nasal Cannula* 2 28 Total Intake and Output 12/16/24 12/16/24 12/17/24 14:59 22:59 06:59 Intake Total 300 ml 300 ml 120 ml Balance 300 ml 300 ml 120 ml medications Current Medications Medications Dose Ordered Sig/Ruby Route Start Time Stop Time Status Last Admin Dose Admin Azithromycin 250 ml @ 125 mls/hr DAILY IV 12/14/24 10:00 12/17/24 10:09 125 MLS/HR Ceftriaxone Sodium 50 ml @ 100 mls/hr DAILY@09 IV 12/14/24 09:00 12/17/24 08:50 100 MLS/HR Atorvastatin Calcium 20 mg HS PO 12/13/24 22:00 12/16/24 21:20 20 MG Memantine 10 mg DAILY PO 12/14/24 10:00 12/17/24 09:00 10 MG Levothyroxine Sodium 112 mcg QAM@0600 PO 12/14/24 06:00 12/17/24 05:35 112 MCG Carvedilol 12.5 mg Q12HR PO 12/13/24 22:00 12/16/24 21:21 12.5 MG Amlodipine Besylate 2.5 mg DAILY PO 12/14/24 10:00 12/16/24 09:02 2.5 MG Gabapentin 300 mg HS PO 12/13/24 22:00 12/16/24 21:20 300 MG Ondansetron HCl 4 mg Q4HP PRN IV 12/13/24 20:00 Acetaminophen 650 mg Q6HP PRN PO 12/13/24 20:00 12/17/24 01:52 650 MG Guaifenesin/ Dextromethorphan 10 ml Q4HP PRN PO 12/13/24 21:15 12/17/24 09:02 10 ML Albuterol 2.5 mg Q4HPRN PRN NEB 12/16/24 12:45 Ipratropium Joseph 0.5 mg Q4HPRN PRN NEB 12/16/24 12:45 objective Awake alert oriented x3 HEENT: Normocephalic Lungs: Bilateral rhonchi CVS: S1, S2 regular rate rhythm Abdomen: Soft, bowel sounds present 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 Stable for discharge from renal standpoint. Plan discussed with: Other KRISTIE NOVA MD Dec 17, 2024 14:56
== END 2024-12-17 19:00 | disposition home or self-care (01) | DRG 177 ==
LOC: ER 16:35 → OVERFLOW 19:46 → EAST 23:39
PROVIDERS: ADMIT Student in an Organized Health Care Education/Training Program; ATTEND Student in an Organized Health Care Education/Training Program
PROC: 5A1D70Z Performance of Urinary Filtration, Intermittent, Less than 6 Hours Per Day (ICD-10-PCS; principal; 2024-12-13)
DX: J15.69 Pneumonia due to other Gram-negative bacteria (principal); J96.01 Acute respiratory failure with hypoxia; N18.6 End stage renal disease; I13.2 Hypertensive heart and chronic kidney disease with heart failure and with stage 5 chronic kidney disease, or end stage renal disease; Z20.822 Contact with and (suspected) exposure to COVID-19; J15.9 Unspecified bacterial pneumonia; Z99.2 Dependence on renal dialysis; I50.9 Heart failure, unspecified; E66.01 Morbid (severe) obesity due to excess calories; Z68.36 Body mass index [BMI] 36.0-36.9, adult; E11.22 Type 2 diabetes mellitus with diabetic chronic kidney disease; F41.9 Anxiety disorder, unspecified; E87.6 Hypokalemia; Z86.73 Personal history of transient ischemic attack (TIA), and cerebral infarction without residual deficits; Z82.49 Family history of ischemic heart disease and other diseases of the circulatory system; Z90.49 Acquired absence of other specified parts of digestive tract
CPT/HCPCS: 36415; 36600; 71045; 71046; 73201; 80048; 80053; 82805; 82962; 83605; 83880; 85025; 86706; 87340; 87426; 87804; 90935; 94640; 96365; G0378; Q9967